=== PATIENT | male | born 1960 | race Caucasian/White ===

== ENCOUNTER 2024-12-16 18:12 | Emergency (ER) | payer BC ==
[~2024-12-16] VITALS: Ht 175.3 cm; Wt 121.1 kg
[~2024-12-16 18:12] MED LIST: CEPH500 PO; HYDACE5 PO; LISI10 PO; OXYACE5T PO; SULTRIDS PO
[2024-12-16] MEDS ORDERED: Diphth,Pertuss(Acell),Tet Vac 0.5 ML VIAL IM ONE (20:50)
== END 2024-12-16 21:11 | disposition home or self-care (01) ==
LOC: ER 18:12
DX: M79.662 Pain in left lower leg (principal); X50.1XXA Overexertion from prolonged static or awkward postures, initial encounter; Z79.899 Other long term (current) drug therapy
CPT/HCPCS: 73562-LT; 73590; 90471; 99283-25

== ENCOUNTER 2025-01-13 00:41 | Day surgery (SDC) | payer BC ==
[2025-01-13] MEDS ORDERED: Lidocaine HCl 4% Cream 5 GM ONE (08:06)
== END 2025-01-13 23:00 | disposition home or self-care (01) ==
LOC: WOUND 00:41
DX: L03.116 Cellulitis of left lower limb (principal); I87.2 Venous insufficiency (chronic) (peripheral); I73.9 Peripheral vascular disease, unspecified; I10 Essential (primary) hypertension
CPT/HCPCS: A9270; G0463

== ENCOUNTER 2025-01-22 04:32 | Day surgery (SDC) | payer BC | END 2025-01-22 23:00 | disposition home or self-care (01) | LOC: WOUND 04:32 | DX: L03.116 Cellulitis of left lower limb (principal); L97.823 Non-pressure chronic ulcer of other part of left lower leg with necrosis of muscle; I87.2 Venous insufficiency (chronic) (peripheral); I73.9 Peripheral vascular disease, unspecified | CPT/HCPCS: G0463 ==

== ENCOUNTER 2025-03-01 08:51 | Day surgery (SDC) | payer BC ==
[2025-03-01] MEDS ORDERED: Lidocaine HCl 4% Cream 5 GM ONE (15:40)
== END 2025-03-02 23:00 | disposition home or self-care (01) ==
LOC: WOUND 08:51
DX: L97.823 Non-pressure chronic ulcer of other part of left lower leg with necrosis of muscle (principal); I87.2 Venous insufficiency (chronic) (peripheral); I73.9 Peripheral vascular disease, unspecified; I10 Essential (primary) hypertension
CPT/HCPCS: A6213; A9270; G0463